=== PATIENT | female | born 1980 | race Two or more races ===

== ENCOUNTER 2020-03-09 11:05 | Emergency (ER) | payer MEDICAID, OTHER ==
[~2020-03-09] VITALS: Ht 172.7 cm; Wt 108.9 kg
[2020-03-09 12:20] VITALS: BP 146/79
[2020-03-09] MEDS ORDERED: cefTRIAXone 1GM/50ML D5W 50 ML IV ONE (12:45)
[2020-03-09] MEDS ORDERED: traMADol HCL 50 MG TAB PO ONE (12:45)
== END 2020-03-09 13:24 | disposition home or self-care (01) ==
LOC: ER 11:05
DX: K08.89 Other specified disorders of teeth and supporting structures (principal); R20.0 Anesthesia of skin; R22.0 Localized swelling, mass and lump, head; F17.210 Nicotine dependence, cigarettes, uncomplicated; Z88.1 Allergy status to other antibiotic agents; Z88.0 Allergy status to penicillin; Z88.5 Allergy status to narcotic agent
CPT/HCPCS: 96365; 99284; J0696

== ENCOUNTER 2020-03-09 18:02 | Emergency (ER) | payer MEDICAID ==
[~2020-03-09] VITALS: Ht 172.7 cm; Wt 108.9 kg
[2020-03-09 18:47] VITALS: BP 126/89
== END 2020-03-09 19:47 | disposition home or self-care (01) ==
LOC: ER 18:02
DX: T50.995A Adverse effect of other drugs, medicaments and biological substances, initial encounter (principal); F17.210 Nicotine dependence, cigarettes, uncomplicated; Z88.0 Allergy status to penicillin; Z88.1 Allergy status to other antibiotic agents; Z88.5 Allergy status to narcotic agent

== ENCOUNTER 2020-03-10 07:42 | Emergency (ER) | payer MEDICAID ==
[~2020-03-10] VITALS: Ht 172.7 cm; Wt 108.9 kg
[2020-03-10 07:50] VITALS: BP 137/72
[2020-03-10] MEDS ORDERED: methylPREDNISolone SOD SUCC 125 MG/2 ML VL IM ONE (09:15)
== END 2020-03-10 09:49 | disposition home or self-care (01) ==
LOC: ER 07:42
DX: J39.2 Other diseases of pharynx (principal); R22.0 Localized swelling, mass and lump, head; T36.1X5A Adverse effect of cephalosporins and other beta-lactam antibiotics, initial encounter; F17.210 Nicotine dependence, cigarettes, uncomplicated; Z88.1 Allergy status to other antibiotic agents; Z88.5 Allergy status to narcotic agent; Z88.0 Allergy status to penicillin; Y92.89 Other specified places as the place of occurrence of the external cause
CPT/HCPCS: 96372; 99283; J2930

== ENCOUNTER 2020-04-01 08:01 | Emergency (ER) | payer MEDICAID ==
[~2020-04-01] VITALS: Ht 172.7 cm; Wt 111.1 kg
[2020-04-01 08:09] VITALS: BP 122/83
[2020-04-01] MEDS ORDERED: BENZOCAINE (DENTAL) 20 % SPRAY 60ML MT ONE (08:45)
[2020-04-01] MEDS ORDERED: levoFLOXacin 750MG 150 ML IV ONE (09:15)
[2020-04-01] MEDS ORDERED: methylPREDNISolone SOD SUCC 125 MG/2 ML VL IV ONE (10:00)
== END 2020-04-01 11:16 | disposition home or self-care (01) ==
LOC: ER 08:01
DX: K04.7 Periapical abscess without sinus (principal); F17.210 Nicotine dependence, cigarettes, uncomplicated; Z90.710 Acquired absence of both cervix and uterus; Z88.0 Allergy status to penicillin; Z88.1 Allergy status to other antibiotic agents; Z88.5 Allergy status to narcotic agent
CPT/HCPCS: 96365; 96375; 99284; J1956; J2930